=== PATIENT | female | born 1960 | race Caucasian/White ===

== ENCOUNTER 2016-08-15 15:46 | Emergency (ER) | payer BC ==
--- NOTE | ~2016-08-15 | CR63 ---
[facility] A Service of [facility] RADIOLOGY TEXT RESULTS PATIENT: KIM ACOSTA LOCATION: [facility] : 58 UNIT #: [id number] AGE: [address]: Sebastian Dominguez MD SEX: F ORDER DR: [id number] [facility] [address] [place], [place] [address] [id number] P MR#: [id number] Acc #: [id number] NAME: KIM ACOSTA : 1960 SEX: F STUDY DATE/TIME: 08/15/2016 1400 UNIT: [facility] ROOM: STUDY DESCRIPTION: CR Chest 2 View Attending Physician: Sebastian Dominguez M.D. Ordering Physician: Sebastian Dominguez M.D. Primary Care Physician: Patricia Bledsoe A.P.R.N. MEDICAL IMAGING REPORT This report is preliminary unless electronic signature is present EXAM Chest, 2 views, 08/15/2016, 1400 hours. CLINICAL HISTORY 56-year-old complaining of shortness of air, congestion and cough with chest pain since 08/13/2016. COMPARISON 12/10/2011 FINDINGS Upright, PA and lateral views of the chest demonstrate normal heart size with minimally tortuous aorta. The lungs are well expanded and clear. There is no effusion or pneumothorax. IMPRESSION No acute cardiopulmonary findings. Dictated by... Kay Osorio M.D. THIS IS AN ELECTRONICALLY VERIFIED REPORT Kay Osroio M.D. at 08/15/2016 5:28 PM GENA/christian TD: 08/15/2016 15:21 JOB #: [id number] MEDICAL IMAGING REPORT Page 1 of 1 COPY
--- NOTE | ~2016-08-15 | EKG ---
PATIENT: KIM ACOSTA UNIT #: [id number] Ventricular Rate: 91 BPM Atrial Rate: 91 BPM P-R Interval: 196 ms QRS Duration: 88 ms Q-T Interval: 362 ms QTC Calculation(Bezet): 445 ms P [place]: 53 degrees Calculated R [place]: 34 degrees Calculated T [place]: 45 degrees Diagnosis Line: Normal sinus rhythm Diagnosis Line: Poor R wave progression questionable lead position Diagnosis Line: or body habitus Otherwise normal ECG Diagnosis Line: When compared with ECG of 10-DEC-2011 13:51, Diagnosis Line: No significant change was found Diagnosis Line: Confirmed by EDWARD JUAREZ MD ([id number]) on 08/17/2016 Diagnosis Line: 9:46:09 AM INTERPRETING MD: ANN KEY
--- NOTE | ~2016-08-15 | CT16 ---
[facility] A Service of [facility] RADIOLOGY TEXT RESULTS PATIENT: KIM ACOSTA LOCATION: [facility] : 58 UNIT #: [id number] AGE: [address]: Sebastian Dominguez MD SEX: F ORDER DR: [id number] [facility] [address] [place], [place] [address] [id number] E MR#: [id number] Acc #: [id number] NAME: KIM ACOSTA : 1960 SEX: F STUDY DATE/TIME: 08/15/2016 15:08 UNIT: [facility] ROOM: STUDY DESCRIPTION: CT Angio Chest for PE Attending Physician: Sebastian Dominguez M.D. Ordering Physician: Sebastian Dominguez M.D. Primary Care Physician: No Primary Care Physician MEDICAL IMAGING REPORT This report is preliminary unless electronic signature is present EXAM Chest CT, 08/15. HISTORY Shortness of air, chest pain, cough, and chest pressure that started this morning. TECHNIQUE Axial images were obtained through the chest following IV contrast administration. 3-D reformats were obtained. This CT exam was performed with one or more of the following radiation dose reduction techniques: automatic exposure control, adjustment of mA and/or kV according to patient size, and iterative reconstruction. COMPARISON STUDIES No comparison. FINDINGS There is no pulmonary embolism or aortic dissection. There is no pleural or pericardial effusion. There is no adenopathy. Thyroid is enlarged. Heart is enlarged, as well. There is some bandlike atelectasis or scarring in the left lower lobe, lingula, and right middle lobe. Minimal alveolar opacities noted in the right lower lobe with some ground-glass opacity in the right upper lobe. This could reflect a mild degree of pneumonia. Additionally, there is subpleural nodule in the posterior right upper lobe measuring about 4 mm in size. In the absence of risk factors for malignancy, consider chest CT followup in 12 months. Otherwise, consider followup in six months. Continuation through the upper abdomen shows changes of cholecystectomy. IMPRESSION [facility] A Service of [facility] RADIOLOGY TEXT RESULTS PATIENT: KIM ACOSTA LOCATION: [facility] #: [id number] : 58 UNIT #: [id number] AGE: [address]: Sebastian Dominguez MD SEX: F ORDER DR: 1. No pulmonary embolism or aortic dissection. 2. Cardiomegaly. 3. Minimal areas of atelectasis or scarring in both lungs, as above. Additionally, there is some alveolar opacity in the right lower lobe with some ground-glass in the right upper lobe. This could reflect a very mild degree of pneumonia. 4. 4 mm subpleural right upper lobe nodule. In the absence of risk factors for malignancy, followup in 12 months is recommended. Otherwise, followup in six months is recommended. 5. Thyromegaly. Dictated by... Loi Uribe Jr., M.D. THIS IS AN ELECTRONICALLY VERIFIED REPORT Loi Uribe Jr., M.D. at 08/15/2016 5:05 PM BEAU/christian TD: 08/15/2016 16:37 JOB #: [id number] MEDICAL IMAGING REPORT Page 1 of 1 COPY
[2016-08-15 13:13] LABS: BASOPHIL# 0.1 X10e3 (0-0.3); BASOPHIL% 0.9 % (0-2.5); DIFF IND NO; EOSINOPHIL# 0.5 X10e3 (0-0.7); EOSINOPHIL% 4.6 % (0.0-7.0); HEMATOCRIT 42.9 % (35.0-45.0); LYMPHOCYTE# 1.7 X10e3 (1.0-3.5); LYMPHOCYTE% 15.8 % (17.0-45.0); MEAN CORPUSCULAR HEMOGLOBIN 29.3 PG (28-34); MEAN CORPUSCULAR HGB CONC 32.6 g/dL (30-36); MEAN PLATELET VOLUME 9.8 FL (6.5-11.5); MONOCYTE% 8.7 % (3.0-12.0); NEUTROPHIL# 7.7 X10e3 (1.5-7.1); PLATELET COUNT 222 X10e3 (140-420); RED BLOOD COUNT 4.76 X10e (3.90-5.30); RED CELL DISTRIBUTION WIDTH 14.7 % (11.0-15.5); WHITE BLOOD COUNT 10.9 X10e3 (4.0-10.5)
[2016-08-15 13:21] LABS: POC - CKMB 1.3 ng/mL (0.0-7.9); POC - TROPONIN <0.05 ng/mL (<=0.05)
[2016-08-15 13:38] LABS: ALBUMIN SERUM 4.4 g/dL (3.5-5.0); BILIRUBIN, DIRECT 0.1 mg/dL (0.0-0.2); BILIRUBIN,INDIRECT 0.2 mg/dL (0.0-0.9); BILIRUBIN,TOTAL 0.3 mg/dL (0.2-2.0); BUN/CREATININE RATIO 22.85; CALCIUM SERUM 9.5 mg/dL (8.4-10.2); CREATININE SERUM 0.7 mg/dL (0.6-1.4); GLOM FILT RATE Estimated 96.2 mL/min (>60); POTASSIUM 3.9 mmol/L (3.5-5.1); PROTEIN TOTAL SERUM 8.6 g/dL (6.0-8.3)
[2016-08-15 15:30] LABS: POC - CKMB 1.6 ng/mL (0.0-7.9); POC - TROPONIN <0.05 ng/mL (<=0.05)
[~2016-08-15 15:46] MED LIST: ALBUTEROL17 GM INH; DOXYCYCLINE HY100 M1 PO; NAPROXEN PO; PREDNISONE PO
== END 2016-08-15 15:48 | disposition home or self-care (01) ==
LOC: CED 15:46
PROVIDERS: Emergency Medicine
DX: J84.9 Interstitial pulmonary disease, unspecified (principal); Z87.442 Personal history of urinary calculi; Z90.49 Acquired absence of other specified parts of digestive tract; Z91.030 Bee allergy status
CPT/HCPCS: 36415; 71020; 71275; 80048; 80076; 82553; 83880; 84484; 85025; 93005; 99284; Q9967